=== PATIENT | male | born 1950 | race Caucasian/White ===

== ENCOUNTER 2017-04-08 05:49 | Day surgery (SDC) | payer OTHER ==
[2017-04-08] MEDS ORDERED: Versed 2 MG/2 ML Injection IV ONE (05:50)
[2017-04-08] MEDS ORDERED: DIPRIVAN 200 MG/20 ML IV ONE (05:50)
[2017-04-08] MEDS ORDERED: Lactated Ringers 1,000 ML IV ONE (05:58)
[2017-04-08] MEDS ORDERED: Lactated Ringers 1,000 ML IV SCH (06:30)
[2017-04-08 08:19] VITALS: O2SAT 99
[2017-04-08 08:32] VITALS: BP 102/58; PULSE 67
--- NOTE | 2017-04-08 08:45 | OP ---
SURGERY DATE/TIME: 04/08/2017 0703 PREOPERATIVE DIAGNOSES: 1) Persistent gastroesophageal reflux disease. 2) Screening colonoscopy. 3) Unexplained weight loss. POSTOPERATIVE DIAGNOSES: 1) Normal EGD. 2) Normal colon. PROCEDURES: 1) EGD. 2) Colonoscopy. SURGEON: Dewey Powers M.D. ANESTHESIA: MAC by Shaun Jaramillo CRNA. ESTIMATED BLOOD LOSS: None. SPECIMENS: None. DESCRIPTION OF PROCEDURE: After informed written consent was obtained, the patient was taken to the endoscopy suite. He underwent monitored anesthesia after a bite block was inserted. The endoscope was inserted in the posterior oropharynx and under direct visualization the esophagus was traversed. The esophageal mucosa was normal in appearance free of lesions or defects. The gastric mucosa had no obvious abnormalities upon entering the gastric cavity. The pylorus was traversed and the first and second portions of the duodenum was within normal limits. Upon withdrawal all mucosal structures appeared normal. The scope was removed and the scopes were switched. Digital rectal exam showed normal sphincter tone and no internal lesions. The scope was inserted in the rectum and sequentially the entire colonic mucosa was traversed. The level of cecum was reached and verified with direct visualization of ileocecal valve. Upon withdrawal careful mucosal inspection revealed no gross abnormalities. Prep was noted to be fair. There was some liquid stool throughout the colon. Prior to withdrawal retroflexion was performed and showed no internal lesions. The scope was removed and the patient was transferred to the recovery room in excellent condition.
== END 2017-04-08 08:54 | disposition home or self-care (01) ==
LOC: SDC 05:49
PROVIDERS: ATTEND Family Medicine
PROC: 0DJD8ZZ Inspection of Lower Intestinal Tract, Via Natural or Artificial Opening Endoscopic (ICD-10-PCS; principal; 2017-04-08)
PROC: 0DJ08ZZ Inspection of Upper Intestinal Tract, Via Natural or Artificial Opening Endoscopic (ICD-10-PCS; 2017-04-08)
DX: K21.9 Gastro-esophageal reflux disease without esophagitis (principal); Z12.11 Encounter for screening for malignant neoplasm of colon; R63.4 Abnormal weight loss
CPT/HCPCS: 00740; 00810; J2250; J2704

== ENCOUNTER 2022-01-08 17:10 | Observation (INO) | payer MEDICARE ==
--- NOTE | 2022-01-08 17:46 | ERPHSYRPT ---
- History of Present Illness Source: patient, other () Exam Limitations: no limitations Patient Subjective Stated Complaint: pt here for generally not feeling since wednesday, aches all over, falling asleep often at home, sob at times Triage Nursing Assessment: pt alert, walked in, able to undress, resp easy, face mask in place, o2 sat 88% ra, o2 at 2 lnc applied Physician History: 71 yo wm w lethargy x 1 week. Pt/ deny focal weakness. Pt has a worsening cough/mild coryza. N/V/D/melena/hematochezia/fever/dysuria/hematuria/chest pain all denied.Pt w sats high 80's upon arrival which increased w 2L O2 NC. Timing/Duration: other (1week) Associated Symptoms: shortness of breath, cough, chills, loss of appetite, malaise, weakness, No nausea, No vomiting, No abdominal pain, No heartburn, No diaphoresis, No chest pain, No fever, No headaches, No rash, No syncope, No seizure Allergies/Adverse Reactions: No Known Drug Allergies Allergy (Verified 01/08/22 20:26) Home Medications: Aspirin 81 gm Chew [Baby Aspirin 81 mg Chew] 81 mg PO QHS 05/16/14 [History] Meloxicam 7.5 tab PO QHS 04/05/17 [History] Multivitamin [Multivitamins] 1 tab PO QHS 04/05/17 [History] Oxybutynin Chloride [Oxybutynin Chloride ER] 10 mg PO QHS 04/05/17 [History] Chlorthalidone 12.5 mg PO QHS 01/08/22 [History] Latanoprost/Pf [Latanoprost 0.005% Eye Drop] 1 drop OP DAILY 01/08/22 [History] Pravastatin Sodium 20 mg PO QHS 01/08/22 [History] Timolol Maleate/Pf [Timolol Maleate 0.5% Eye Drop] 1 drop OP QHS 01/08/22 [History] Hx Tetanus, Diphtheria Vaccination/Date Given: No Hx Influenza Vaccination/Date Given: No Hx Pneumococcal Vaccination/Date Given: No Immunizations Up to Date: Yes Travel Risk - International Travel Have you traveled outside of the country in past 3 weeks: No - Coronavirus Screening Are you exhibiting any of the following symptoms?: Yes Symptoms: Shortness of Breath, Headaches/Body Aches/Fatigue Close contact with a COVID-19 positive Pt in past 14-21 Days: No - Vaccine Status Have you recieved a Covid-19 vaccination: No - Review of Systems Constitutional: No Symptoms, Fatigue, Lethargy, Malaise Eyes: No Symptoms Ears, Nose, & Throat: No Symptoms Respiratory: No Symptoms, Cough Cardiac: No Symptoms Abdominal/Gastrointestinal: No Symptoms Genitourinary Symptoms: No Symptoms Musculoskeletal: No Symptoms Skin: No Symptoms Neurological: No Symptoms, Lethargy, No Dizziness, No Focal Weakness, No Gait Changes, No Headache, No Irritability, No Paralysis, No Parasthesia, No Seizure, No Sensory Changes, No Speech Changes, No Tics, No Tremors, No Vertigo Psychological: No Symptoms Endocrine: No Symptoms Hematologic/Lymphatic: No Symptoms Immunological/Allergic: No Symptoms - Past Medical History Pertinent Past Medical History: Yes Neurological History: TIA ENT History: No Pertinent History Cardiac History: No Pertinent History Respiratory History: No Pertinent History Endocrine Medical History: No Pertinent History Musculoskeletal History: No Pertinent History GI Medical History: No Pertinent History History: Other Psycho-Social History: No Pertinent History Male Reproductive Disorders: No Pertinent History Other Medical History: 3 back surgeries, 2 TIA - Past Surgical History Past Surgical History: Yes Neuro Surgical History: No Pertinent History Cardiac: No Pertinent History Respiratory: No Pertinent History Gastrointestinal: Appendectomy, Hernia Repair Genitourinary: No Pertinent History Musculoskeletal: Orthopedic Surgery Male Surgical History: No Pertinent History Other Surgical History: Back surgery x3 - Social History Smoking Status: Current every day smoker How long have you smoked: 50 Exposure to second hand smoke: Yes Drug Use: none Patient Lives Alone: No Significant Family History: no pertinent family hx - Nursing Vital Signs Nursing Vital Signs: Initial Vital Signs Temperature 99.2 F 01/08/22 17:19 Pulse Rate 84 01/08/22 17:19 Respiratory Rate 28 H 01/08/22 17:19 Blood Pressure 139/70 01/08/22 17:19 O2 Sat by Pulse Oximetry 87 L 01/08/22 17:19 Pain Scale Pain Intensity 0 Borderline hypertension - Physical Exam General Appearance: no apparent distress, lethargy Eye Exam: PERRL/EOMI, eyes nml inspection Ears, Nose, Throat Exam: normal ENT inspection, TMs normal, pharynx normal, moist mucous membranes Neck Exam: normal inspection, non-tender, supple, full range of motion, No meningismus, No mass, No Brudzinski, No Kernig's Respiratory Exam: airway intact, diminished breath sounds (Decreased BS B) Cardiovascular Exam: regular rate/rhythm, normal heart sounds, normal peripheral pulses, capillary refill <2 sec, No murmur Gastrointestinal/Abdomen Exam: soft, normal bowel sounds, No tenderness Back Exam: normal inspection, normal range of motion, No CVA tenderness, No vertebral tenderness Extremity Exam: normal inspection, normal range of motion Neurologic Exam: alert, oriented x 3, cooperative, superintendent job II-XII nml as tested, normal mood/affect, nml cerebellar function, nml station & gait, sensation nml Skin Exam: normal color, warm, dry Lymphatic Exam: No adenopathy SpO2 Interpretation: hypoxic SpO2: 87 O2 Delivery: Room Air - Course Nursing assessment & vital signs reviewed: Yes EKG Interpreted by Me: RATE (NSR/Rate 82/RBBB/Nonspecific St-[facility] changes) - CT Exams Head CT Interpretation: Discussed w/radiologist (NAD) Chest CT Interpretation: Discussed w/radiologist (RLL/Mild LLL pneumonia) Ordered Tests: Active Orders 24 hr Category Date Time Status EKG-ER Only STAT Care 01/08/22 17:38 Completed IV Insertion STAT Care 01/08/22 17:38 Completed Heart-Healthy Diet Diet 01/09/22 Breakfast Active CHEST WITHOUT CONTRAST [CT] Stat Exams 01/08/22 17:39 Taken HEAD WITHOUT CONTRAST [CT] Stat Exams 01/08/22 17:39 Taken BLOOD CULTURE Stat Lab 01/08/22 19:44 Stop Req CBC W DIFF AM.LAB Lab 01/09/22 04:00 Ordered CBC W DIFF Stat Lab 01/08/22 17:55 Completed CMP AM.LAB Lab 01/09/22 04:00 Ordered CMP Stat Lab 01/08/22 17:55 Completed ETHYL ALCOHOL Stat Lab 01/08/22 17:55 Completed Lactic Acid AM.LAB Lab 01/09/22 04:00 Ordered Lactic Acid Stat Lab 01/08/22 17:55 Completed TROPONIN Q3H Lab 01/08/22 17:55 Completed TROPONIN Q3H Lab 01/08/22 19:44 Completed TROPONIN Q3H Lab 01/09/22 02:45 Ordered TROPONIN Q3H Lab 01/09/22 05:45 Ordered UA W/RFX CULTURE Stat Lab 01/08/22 20:55 Completed Urine Triage Profile Stat Lab 01/08/22 20:55 Completed Transfer Order Routine Transfer 01/08/22 Completed Medication Summary Generic Name Dose Route Start Last Admin Trade Name Freq PRN Reason Stop Dose Admin Albuterol/Ipratropium 3 ml 01/08/22 19:33 Ipratropium/Albuterol Sulfate 3 Ml Ampul.Neb IH 02/07/22 19:32 Q4HPRN PRN SHORTNESS OF BREATH/WHEEZING Aspirin 81 mg 01/08/22 22:30 01/08/22 22:36 Aspirin 81 Mg Tablet.Ec PO 02/07/22 22:29 81 mg HS MATIAS Administration Chlorthalidone 12.5 mg 01/08/22 22:30 01/08/22 23:15 Chlorthalidone 25 Mg Tablet PO 02/07/22 22:29 12.5 mg HS MATIAS Administration Enoxaparin Sodium 40 mg 01/09/22 10:00 Enoxaparin Sodium 40 Mg/0.4 Ml Syringe SQ 02/08/22 09:59 DAILY MATIAS Sodium Chloride 1,000 mls @ 100 mls/hr 01/08/22 19:45 01/08/22 19:45 Sodium Chloride 0.9% 1000 Ml IV 02/07/22 19:44 100 mls/hr .Q10H MATIAS Administration Ceftriaxone Sodium/Dextrose 1 g in 50 mls @ 100 mls/hr 01/09/22 22:00 Rocephin 1 Gm-D5w 50 Ml Bag IV 01/12/22 21:59 Q24H22 MATIAS Azithromycin 500 mg in 250 mls @ 250 mls/hr 01/08/22 22:00 01/08/22 22:35 Zithromax 500 Mg/ 250 Ml Nacl Premix IV 02/07/22 21:59 250 mls/hr Q24H22 MATIAS Administration Meloxicam 7.5 mg 01/08/22 22:30 01/08/22 22:36 Meloxicam 7.5 Mg Tablet PO 02/07/22 22:29 7.5 mg HS MATIAS Administration Multivitamins Therapeutic 1 tab 01/08/22 22:30 01/08/22 22:36 Multivitamins,Therapeutic 1 Tab Tab PO 02/07/22 22:29 1 tab HS MATIAS Administration Ondansetron HCl 4 mg 01/08/22 19:33 Ondansetron Hcl 4 Mg/2 Ml Vial IV 02/07/22 19:32 Q6H PRN PRN NAUSEA/VOMITING Oxybutynin Chloride 10 mg 01/08/22 22:30 01/08/22 22:36 Oxybutynin Chloride Xl 5 Mg Tab PO 02/07/22 22:29 10 mg HS MATIAS Administration Pantoprazole Sodium 40 mg 01/09/22 10:00 Pantoprazole 40 Mg Vial IV 02/08/22 09:59 Q24H10 MATIAS Simvastatin 20 mg 01/08/22 22:30 01/08/22 22:36 Simvastatin 20 Mg Tablet PO 02/07/22 22:29 20 mg HS MATIAS Administration Timolol Maleate 0 ml 01/08/22 22:30 01/08/22 22:36 Timolol Maleate 0.5% 5 Ml Eye Drops OP 02/07/22 22:29 1 ml HS MATIAS Administration Discontinued Medications Generic Name Dose Route Start Last Admin Trade Name Freq PRN Reason Stop Dose Admin Aspirin 81 mg 01/08/22 22:30 Aspirin 81 Mg Tablet.Ec PO 01/08/22 22:31 ONCE ONE Ceftriaxone Sodium/Dextrose 1 g in 50 mls @ 100 mls/hr 01/08/22 19:22 01/08/22 19:56 Rocephin 1 Gm-D5w 50 Ml Bag IV 01/08/22 19:51 Infused STAT STA Infusion Ceftriaxone Sodium/Dextrose Confirm 01/08/22 19:24 Rocephin 1 Gm-D5w 50 Ml Bag Administered 01/08/22 19:25 Dose 1 g in 50 mls @ ud IV .STK-MED ONE Oxybutynin Chloride 10 mg 01/08/22 22:30 Oxybutynin Chloride Xl 5 Mg Tab PO 01/08/22 22:31 ONCE ONE Lab/Rad Data: Laboratory Result Diagrams 01/08/22 17:55 01/08/22 17:55 Laboratory Results 01/08/22 01/08/22 01/08/22 Range/Units 19:44 17:55 17:55 WBC (4.0-10.5) x10^3/uL RBC (4.1-5.6) x10^6/uL Hgb (12.5-18.0) g/dL Hct (42-50) % MCV (78-100) fL MCH (26-32) pg MCHC (32-36) g/dL RDW (11.5-14.0) % Plt Count (150-450) x10^3/uL MPV (7.5-11.0) fL Gran % (36.0-66.0) % Immature Gran % (Auto) (0.00-0.4) % Nucleat RBC Rel Count (0.00-0.1) % Eos # (Auto) (0-0.5) x10^3/uL Immature Gran # (Auto) (0.00-0.03) x10^3u/L Absolute Lymphs (auto) (1.0-4.6) x10^3/uL Absolute Monos (auto) (0.0-1.3) x10^3/uL Absolute Nucleated RBC (0.00-0.01) x10^3u/L Lymphocytes % (24.0-44.0) % Monocytes % (0.0-12.0) % Eosinophils % (0.00-5.0) % Basophils % (0.0-0.4) % Absolute Granulocytes (1.4-6.9) x10^3/uL Basophils # (0-0.4) x10^3/uL Sodium (137-145) mmol/L Potassium (3.5-5.1) mmol/L Chloride (98-107) mmol/L Carbon Dioxide (22-30) mmol/L Anion Gap (5-15) MEQ/L BUN (9-20) mg/dL Creatinine (0.66-1.25) mg/dL Estimated GFR ML/MIN Glucose (74-106) mg/dL Lactic Acid (0.4-2.0) Calcium (8.4-10.2) mg/dL Total Bilirubin (0.2-1.3) mg/dL AST (17-59) U/L ALT (0-50) U/L Alkaline Phosphatase (38-126) U/L Troponin I < 0.012 < 0.012 (0.000-0.034) ng/mL Serum Total Protein (6.3-8.2) g/dL Albumin (3.5-5.0) g/dL Ethyl Alcohol (0-10) mg/dL Influenza Type A Ag NEGATIVE (NEGATIVE) Influenza Type B Ag NEGATIVE (NEGATIVE) RSV (PCR) NEGATIVE (Negative) SARS-CoV-2 (PCR) NEGATIVE (NEGATIVE) Slides for Path Review 01/08/22 01/08/22 01/08/22 Range/Units 17:55 17:55 17:55 WBC 12.8 H (4.0-10.5) x10^3/uL RBC 4.41 (4.1-5.6) x10^6/uL Hgb 13.3 (12.5-18.0) g/dL Hct 39.0 L (42-50) % MCV 88.4 (78-100) fL MCH 30.2 (26-32) pg MCHC 34.1 (32-36) g/dL RDW 13.2 (11.5-14.0) % Plt Count 200 (150-450) x10^3/uL MPV 8.5 (7.5-11.0) fL Gran % 78.9 H (36.0-66.0) % Immature Gran % (Auto) 0.5 H (0.00-0.4) % Nucleat RBC Rel Count 0.0 (0.00-0.1) % Eos # (Auto) 0.08 (0-0.5) x10^3/uL Immature Gran # (Auto) 0.07 H (0.00-0.03) x10^3u/L Absolute Lymphs (auto) 1.00 (1.0-4.6) x10^3/uL Absolute Monos (auto) 1.52 H (0.0-1.3) x10^3/uL Absolute Nucleated RBC 0.00 (0.00-0.01) x10^3u/L Lymphocytes % 7.8 L (24.0-44.0) % Monocytes % 11.9 (0.0-12.0) % Eosinophils % 0.6 (0.00-5.0) % Basophils % 0.3 (0.0-0.4) % Absolute Granulocytes 10.08 H (1.4-6.9) x10^3/uL Basophils # 0.04 (0-0.4) x10^3/uL Sodium 133 L (137-145) mmol/L Potassium 3.9 (3.5-5.1) mmol/L Chloride 95 L (98-107) mmol/L Carbon Dioxide 28 (22-30) mmol/L Anion Gap 13.3 (5-15) MEQ/L BUN 21 H (9-20) mg/dL Creatinine 0.96 (0.66-1.25) mg/dL Estimated GFR > 60.0 ML/MIN Glucose 108 H (74-106) mg/dL Lactic Acid 0.9 (0.4-2.0) Calcium 9.2 (8.4-10.2) mg/dL Total Bilirubin 0.70 (0.2-1.3) mg/dL AST 22 (17-59) U/L ALT 12 (0-50) U/L Alkaline Phosphatase 66 (38-126) U/L Troponin I (0.000-0.034) ng/mL Serum Total Protein 6.6 (6.3-8.2) g/dL Albumin 4.0 (3.5-5.0) g/dL Ethyl Alcohol < 10 (0-10) mg/dL Influenza Type A Ag (NEGATIVE) Influenza Type B Ag (NEGATIVE) RSV (PCR) (Negative) SARS-CoV-2 (PCR) (NEGATIVE) Slides for Path Review YES - Progress Progress: improved Progress Note: 01/08/22 19:32 Blood cultures x2 Rocephin 1gm IV Discussed with Dr.: Soren Will see patient in: hospital (observation) Counseled pt/family regarding: lab results, diagnosis, need for follow-up, rad results - Departure Departure Disposition: Observation Clinical Impression: Pneumonia Condition: Stable Critical Care Time: No
[2022-01-08 18:06] LABS: Absolute Neutrophil Ct (ANC) 10.08 x10^3/uL (1.4-6.9); Basophil (Absolute #) 0.04 x10^3/uL (0-0.4); Eosinophil % 0.6 % (0.00-5.0); Eosinophil (Absolute #) 0.08 x10^3/uL (0-0.5); Hemoglobin 13.3 g/dL (12.5-18.0); Lymphocytes % 7.8 % (24.0-44.0); Mean Cell Volume 88.4 fL (78-100); Mean Corpuscular Hemoglobin 30.2 pg (26-32); Mean Corpuscular Hgb Concent. 34.1 g/dL (32-36); Mean Platelet Volume 8.5 fL (7.5-11.0); Monocyte (Absolute #) 1.52 x10^3/uL (0.0-1.3); Monocytes % 11.9 % (0.0-12.0); Neutrophil % 78.9 % (36.0-66.0); Platelet Count 200 x10^3/uL (150-450); Red Blood Count 4.41 x10^6/uL (4.1-5.6); Red Cell Distribution Width 13.2 % (11.5-14.0); White Blood Count 12.8 x10^3/uL (4.0-10.5)
[2022-01-08 18:13] LABS: ALKALINE PHOSPHATASE 66 U/L (38-126); ANION GAP 13.3 MEQ/L (5-15); BLOOD UREA NITROGEN 21 mg/dL (9-20); CHLORIDE 95 mmol/L (98-107); Calcium 9.2 mg/dL (8.4-10.2); Carbon Dioxide 28 mmol/L (22-30); Creatinine 1 0.96 mg/dL (0.66-1.25); EST GLOMERULAR FILTRATION RATE > 60.0 ML/MIN; ETHYL ALCOHOL < 10 mg/dL (0-10); Glucose 108 mg/dL (74-106); Potassium 3.9 mmol/L (3.5-5.1); SGOT/AST 22 U/L (17-59); SGPT/ALT 12 U/L (0-50); SODIUM 133 mmol/L (137-145); Total Protein 6.6 g/dL (6.3-8.2)
[2022-01-08 18:39] LABS: INFLUENZA A NEGATIVE (NEGATIVE); INFLUENZA B NEGATIVE (NEGATIVE); RESPIRATORY SYNCTIAL VIRUS NEGATIVE (Negative); SARS-CoV-2 Xpert Express NEGATIVE (NEGATIVE)
[2022-01-08] MEDS ORDERED: ROCEPHIN 1 Gm-D5w 50 ml Bag** 1 G/50 ML IVPB IV STA (19:22)
[2022-01-08] MEDS ORDERED: ROCEPHIN 1 Gm-D5w 50 ml Bag** 1 G/50 ML IVPB IV ONE (19:24)
[2022-01-08] MEDS ORDERED: DUONEB 0.5-3 MG/3 ml Neb IH PRN (19:33)
[2022-01-08] MEDS ORDERED: Zofran 4 MG/2 ML VIAL IV PRN (19:33)
[2022-01-08] MEDS: Sodium Chloride 0.9% 1000 ML 1,000 ML IV SCH (19:45)
[2022-01-08 21:02] LABS: Appearance CLEAR (CLEAR); Bilirubin NEGATIVE (NEGATIVE); Dipstick done @ ? MAIN LAB; Glucose NEGATIVE (NEGATIVE); Ketones SMALL-15 (NEGATIVE); Nitrite NEGATIVE (NEGATIVE); Protein,Urine Dip NEGATIVE (Negative); RBC TRACE-INTACT Ery/ul (0-5); Urobilinogen 1 mg/dL (0-1)
[2022-01-08 21:04] LABS: Urine Cultured Indicated? NO
[2022-01-08 21:16] LABS: Slide Review 1 YES
[2022-01-08 21:18] LABS: Amphetamine,Urine NEGATIVE (NEGATIVE); Barbiturate,Urine NEGATIVE (NEGATIVE); Benzodiazepine,Urine NEGATIVE (NEGATIVE); Cocaine,Urine NEGATIVE (NEGATIVE); Methadone,Urine NEGATIVE (NEGATIVE); Opiate,Urine NEGATIVE (NEGATIVE); PCP,Urine NEGATIVE (NEGATIVE); THC,Urine NEGATIVE (NEGATIVE)
[2022-01-08] MEDS ORDERED: ECOTRIN 81 MG PO ONE (22:30)
[2022-01-08] MEDS ORDERED: BABY ASPIRIN 81 MG CHEW PO ONE (22:30)
[2022-01-08] MEDS ORDERED: Ditropan XL 5 MG PO ONE (22:30)
[2022-01-08] MEDS: Zithromax 500 MG/ 250 ML NaCl Premix 500 MG/250 ML IVPB IV SCH (22:35)
[2022-01-08] MEDS: TIMOPTIC 0.5% 5 ML OPHTHALMIC OP SCH (22:36)
[2022-01-08] MEDS: MELOXICAM PO SCH (22:36)
[2022-01-08] MEDS: THERAGRAN MULTIVITAMIN PO SCH (22:36)
[2022-01-08] MEDS: ECOTRIN 81 MG PO SCH (22:36)
[2022-01-08] MEDS: ZOCOR 20MG PO SCH (22:36)
[2022-01-08] MEDS: Ditropan XL 5 MG PO SCH (22:36)
[2022-01-08] MEDS: CHLORTHALIDONE PO SCH (23:15)
[2022-01-09 04:41] LABS: Absolute Neutrophil Ct (ANC) 8.02 x10^3/uL (1.4-6.9); Basophil (Absolute #) 0.03 x10^3/uL (0-0.4); Eosinophil % 1.1 % (0.00-5.0); Eosinophil (Absolute #) 0.12 x10^3/uL (0-0.5); Hemoglobin 12.2 g/dL (12.5-18.0); Lymphocyte (Absolute #) 1.62 x10^3/uL (1.0-4.6); Lymphocytes % 14.2 % (24.0-44.0); Mean Cell Volume 88.3 fL (78-100); Mean Corpuscular Hemoglobin 29.1 pg (26-32); Mean Platelet Volume 8.6 fL (7.5-11.0); Monocyte (Absolute #) 1.49 x10^3/uL (0.0-1.3); Monocytes % 13.1 % (0.0-12.0); Neutrophil % 70.5 % (36.0-66.0); Platelet Count 210 x10^3/uL (150-450); Red Blood Count 4.19 x10^6/uL (4.1-5.6); Red Cell Distribution Width 13.2 % (11.5-14.0); White Blood Count 11.4 x10^3/uL (4.0-10.5)
[2022-01-09 05:10] LABS: ALBUMIN 3.3 g/dL (3.5-5.0); ALKALINE PHOSPHATASE 57 U/L (38-126); ANION GAP 11.5 MEQ/L (5-15); BLOOD UREA NITROGEN 21 mg/dL (9-20); CHLORIDE 100 mmol/L (98-107); Calcium 8.7 mg/dL (8.4-10.2); Carbon Dioxide 28 mmol/L (22-30); EST GLOMERULAR FILTRATION RATE > 60.0 ML/MIN; Glucose 116 mg/dL (74-106); Potassium 3.5 mmol/L (3.5-5.1); SGOT/AST 21 U/L (17-59); SGPT/ALT 12 U/L (0-50); SODIUM 135 mmol/L (137-145); Total Protein 6.1 g/dL (6.3-8.2)
[2022-01-09] MEDS: Sodium Chloride 0.9% 1000 ML 1,000 ML IV SCH ×2 (07:54→18:17)
--- NOTE | 2022-01-09 08:30 | PCM.HP ---
History of Present Illness - Chief Complaint Chief Complaint: pneumonia History of Present Illness: Mr.FISH FERNANDEZ is a 71 year old male who reported to the ER last night with a cough and increasing somnolence for the last 1 week, he is alert and eating breakfast and states he is feeling better this morning, his cough was productive prior to admission. no other complaints. - Review of Systems Constitutional: Fatigue, No Fever, No Chills Respiratory: Cough, Short Of Breath Cardiac: No Chest Pain, No Edema, No Syncope Abdominal/Gastrointestinal: No Abdominal Pain, No Nausea, No Vomiting, No Diarrhea Genitourinary Symptoms: No Dysuria Skin: No Rash Medications & Allergies Home Medications: Home Medication List Aspirin 81 gm Chew [Baby Aspirin 81 mg Chew] 81 mg PO QHS 05/16/14 [History Confirmed 01/08/22] Meloxicam 7.5 tab PO QHS 04/05/17 [History Confirmed 01/08/22] Multivitamin [Multivitamins] 1 tab PO QHS 04/05/17 [History Confirmed 01/08/22] Oxybutynin Chloride [Oxybutynin Chloride ER] 10 mg PO QHS 04/05/17 [History Confirmed 01/08/22] Chlorthalidone 12.5 mg PO QHS 01/08/22 [History Confirmed 01/08/22] Latanoprost/Pf [Latanoprost 0.005% Eye Drop] 1 drop OP DAILY 01/08/22 [History Confirmed 01/08/22] Pravastatin Sodium 20 mg PO QHS 01/08/22 [History Confirmed 01/08/22] Timolol Maleate/Pf [Timolol Maleate 0.5% Eye Drop] 1 drop OP QHS 01/08/22 [History Confirmed 01/08/22] Allergies/Adverse Reactions: Allergies Allergy/AdvReac Type Severity Reaction Status Date / Time No Known Drug Allergies Allergy Verified 01/08/22 20:26 - Past Medical History Past Medical History: Yes Neurological History: TIA ENT History: No Pertinent History Cardiac History: No Pertinent History Respiratory History: No Pertinent History Endocrine Medical History: No Pertinent History Musculoskelatal History: No Pertinent History GI Medical History: No Pertinent History History: Other Pyscho-Social History: No Pertinent History Male Reproductive Disorders: No Pertinent History Comment: 3 back surgeries, 2 TIA - Past Surgical History Past Surgical History: Yes Neuro Surgical History: No Pertinent History Cardiac History: No Pertinent History Respiratory Surgery: No Pertinent History GI Surgical History: Appendectomy, Hernia Repair Genitourinary Surgical Hx: No Pertinent History Musculskeletal Surgical Hx: Orthopedic Surgery Male Surgical History: No Pertinent History Other Surgical History: Back surgery x3 - Social History Smoking Status: Current every day smoker How long have you smoked: 50 Exposure to second hand smoke: Yes Alcohol: None Drug Use: none Significant Family History: no pertinent family hx - Physical Exam Vital Signs: Vital Signs - 24 hr Temp Pulse Resp BP Pulse Ox 01/09/22 08:00 97.7 F 64 15 115/55 95 01/09/22 06:47 68 16 92 L 01/09/22 04:00 100 F 72 20 107/56 95 01/08/22 23:51 87 L 01/08/22 23:22 98.0 F 78 18 98/53 96 01/08/22 22:46 94 L 01/08/22 22:39 78 16 94 L 01/08/22 20:39 98.9 F 82 20 107/56 94 L 01/08/22 19:59 79 32 H 121/72 93 L 01/08/22 19:00 79 124/67 92 L 01/08/22 18:20 80 125/70 92 L 01/08/22 17:19 99.2 F 84 28 H 139/70 87 L General Appearance: no apparent distress Neurologic Exam: alert, oriented x 3, cooperative, normal mood/affect, nml cerebellar function, nml station & gait, sensation nml, No motor deficits Respiratory Exam: rhonchi Cardiovascular Exam: regular rate/rhythm, normal heart sounds, normal peripheral pulses Gastrointestinal/Abdomen Exam: soft, normal bowel sounds, No tenderness, No mass Extremity Exam: normal inspection, normal range of motion, pelvis stable Skin Exam: normal color, warm, dry, No rash Results - Labs Lab/Micro Results: Lab Results-Last 24 Hours 01/08/22 01/08/22 01/08/22 Range/Units 17:55 17:55 17:55 WBC 12.8 H (4.0-10.5) x10^3/uL RBC 4.41 (4.1-5.6) x10^6/uL Hgb 13.3 (12.5-18.0) g/dL Hct 39.0 L (42-50) % MCV 88.4 (78-100) fL MCH 30.2 (26-32) pg MCHC 34.1 (32-36) g/dL RDW 13.2 (11.5-14.0) % Plt Count 200 (150-450) x10^3/uL MPV 8.5 (7.5-11.0) fL Gran % 78.9 H (36.0-66.0) % Immature Gran % (Auto) 0.5 H (0.00-0.4) % Nucleat RBC Rel Count 0.0 (0.00-0.1) % Eos # (Auto) 0.08 (0-0.5) x10^3/uL Immature Gran # (Auto) 0.07 H (0.00-0.03) x10^3u/L Absolute Lymphs (auto) 1.00 (1.0-4.6) x10^3/uL Absolute Monos (auto) 1.52 H (0.0-1.3) x10^3/uL Absolute Nucleated RBC 0.00 (0.00-0.01) x10^3u/L Lymphocytes % 7.8 L (24.0-44.0) % Monocytes % 11.9 (0.0-12.0) % Eosinophils % 0.6 (0.00-5.0) % Basophils % 0.3 (0.0-0.4) % Absolute Granulocytes 10.08 H (1.4-6.9) x10^3/uL Basophils # 0.04 (0-0.4) x10^3/uL Sodium 133 L (137-145) mmol/L Potassium 3.9 (3.5-5.1) mmol/L Chloride 95 L (98-107) mmol/L Carbon Dioxide 28 (22-30) mmol/L Anion Gap 13.3 (5-15) MEQ/L BUN 21 H (9-20) mg/dL Creatinine 0.96 (0.66-1.25) mg/dL Estimated GFR > 60.0 ML/MIN Glucose 108 H (74-106) mg/dL Lactic Acid 0.9 (0.4-2.0) Calcium 9.2 (8.4-10.2) mg/dL Total Bilirubin 0.70 (0.2-1.3) mg/dL AST 22 (17-59) U/L ALT 12 (0-50) U/L Alkaline Phosphatase 66 (38-126) U/L Troponin I (0.000-0.034) ng/mL Serum Total Protein 6.6 (6.3-8.2) g/dL Albumin 4.0 (3.5-5.0) g/dL Urinalys Dipstick Clnc Urine Color (YELLOW) Urine Appearance (CLEAR) Urine pH (5-6) Ur Specific [place] (1.005-1.025) POC Urine Protein Conf (Negative) Urine Ketones (NEGATIVE) Urine Nitrite (NEGATIVE) Urine Bilirubin (NEGATIVE) Urine Urobilinogen (0-1) mg/dL Urine Leukocytes (NEGATIVE) Urine WBC (Auto) (0-5) /HPF Urine RBC (Auto) (0-2) /HPF U Epithel Cells (Auto) (FEW) /HPF Urine Bacteria (Auto) (NEGATIVE) /HPF Urine RBC (0-5) Jostin/ul Ur Culture Indicated? Urine Glucose (NEGATIVE) mg/dL Urine Opiates Level (NEGATIVE) Ur Methadone (NEGATIVE) Urine Barbiturates (NEGATIVE) Ur Phencyclidine (PCP) (NEGATIVE) Urine Amphetamine (NEGATIVE) U Benzodiazepine Level (NEGATIVE) Urine Cocaine (NEGATIVE) Urine Marijuana (THC) (NEGATIVE) Ethyl Alcohol < 10 (0-10) mg/dL Influenza Type A Ag (NEGATIVE) Influenza Type B Ag (NEGATIVE) RSV (PCR) (Negative) SARS-CoV-2 (PCR) (NEGATIVE) Slides for Path Review YES 01/08/22 01/08/22 01/08/22 Range/Units 17:55 17:55 19:44 WBC (4.0-10.5) x10^3/uL RBC (4.1-5.6) x10^6/uL Hgb (12.5-18.0) g/dL Hct (42-50) % MCV (78-100) fL MCH (26-32) pg MCHC (32-36) g/dL RDW (11.5-14.0) % Plt Count (150-450) x10^3/uL MPV (7.5-11.0) fL Gran % (36.0-66.0) % Immature Gran % (Auto) (0.00-0.4) % Nucleat RBC Rel Count (0.00-0.1) % Eos # (Auto) (0-0.5) x10^3/uL Immature Gran # (Auto) (0.00-0.03) x10^3u/L Absolute Lymphs (auto) (1.0-4.6) x10^3/uL Absolute Monos (auto) (0.0-1.3) x10^3/uL Absolute Nucleated RBC (0.00-0.01) x10^3u/L Lymphocytes % (24.0-44.0) % Monocytes % (0.0-12.0) % Eosinophils % (0.00-5.0) % Basophils % (0.0-0.4) % Absolute Granulocytes (1.4-6.9) x10^3/uL Basophils # (0-0.4) x10^3/uL Sodium (137-145) mmol/L Potassium (3.5-5.1) mmol/L Chloride (98-107) mmol/L Carbon Dioxide (22-30) mmol/L Anion Gap (5-15) MEQ/L BUN (9-20) mg/dL Creatinine (0.66-1.25) mg/dL Estimated GFR ML/MIN Glucose (74-106) mg/dL Lactic Acid (0.4-2.0) Calcium (8.4-10.2) mg/dL Total Bilirubin (0.2-1.3) mg/dL AST (17-59) U/L ALT (0-50) U/L Alkaline Phosphatase (38-126) U/L Troponin I < 0.012 < 0.012 (0.000-0.034) ng/mL Serum Total Protein (6.3-8.2) g/dL Albumin (3.5-5.0) g/dL Urinalys Dipstick Clnc Urine Color (YELLOW) Urine Appearance (CLEAR) Urine pH (5-6) Ur Specific [place] (1.005-1.025) POC Urine Protein Conf (Negative) Urine Ketones (NEGATIVE) Urine Nitrite (NEGATIVE) Urine Bilirubin (NEGATIVE) Urine Urobilinogen (0-1) mg/dL Urine Leukocytes (NEGATIVE) Urine WBC (Auto) (0-5) /HPF Urine RBC (Auto) (0-2) /HPF U Epithel Cells (Auto) (FEW) /HPF Urine Bacteria (Auto) (NEGATIVE) /HPF Urine RBC (0-5) Jostin/ul Ur Culture Indicated? Urine Glucose (NEGATIVE) mg/dL Urine Opiates Level (NEGATIVE) Ur Methadone (NEGATIVE) Urine Barbiturates (NEGATIVE) Ur Phencyclidine (PCP) (NEGATIVE) Urine Amphetamine (NEGATIVE) U Benzodiazepine Level (NEGATIVE) Urine Cocaine (NEGATIVE) Urine Marijuana (THC) (NEGATIVE) Ethyl Alcohol (0-10) mg/dL Influenza Type A Ag NEGATIVE (NEGATIVE) Influenza Type B Ag NEGATIVE (NEGATIVE) RSV (PCR) NEGATIVE (Negative) SARS-CoV-2 (PCR) NEGATIVE (NEGATIVE) Slides for Path Review 01/08/22 01/08/22 01/09/22 Range/Units 20:55 20:55 04:20 WBC 11.4 H (4.0-10.5) x10^3/uL RBC 4.19 (4.1-5.6) x10^6/uL Hgb 12.2 L (12.5-18.0) g/dL Hct 37.0 L (42-50) % MCV 88.3 (78-100) fL MCH 29.1 (26-32) pg MCHC 33.0 (32-36) g/dL RDW 13.2 (11.5-14.0) % Plt Count 210 (150-450) x10^3/uL MPV 8.6 (7.5-11.0) fL Gran % 70.5 H (36.0-66.0) % Immature Gran % (Auto) 0.8 H (0.00-0.4) % Nucleat RBC Rel Count 0.0 (0.00-0.1) % Eos # (Auto) 0.12 (0-0.5) x10^3/uL Immature Gran # (Auto) 0.09 H (0.00-0.03) x10^3u/L Absolute Lymphs (auto) 1.62 (1.0-4.6) x10^3/uL Absolute Monos (auto) 1.49 H (0.0-1.3) x10^3/uL Absolute Nucleated RBC 0.00 (0.00-0.01) x10^3u/L Lymphocytes % 14.2 L (24.0-44.0) % Monocytes % 13.1 H (0.0-12.0) % Eosinophils % 1.1 (0.00-5.0) % Basophils % 0.3 (0.0-0.4) % Absolute Granulocytes 8.02 H (1.4-6.9) x10^3/uL Basophils # 0.03 (0-0.4) x10^3/uL Sodium (137-145) mmol/L Potassium (3.5-5.1) mmol/L Chloride (98-107) mmol/L Carbon Dioxide (22-30) mmol/L Anion Gap (5-15) MEQ/L BUN (9-20) mg/dL Creatinine (0.66-1.25) mg/dL Estimated GFR ML/MIN Glucose (74-106) mg/dL Lactic Acid (0.4-2.0) Calcium (8.4-10.2) mg/dL Total Bilirubin (0.2-1.3) mg/dL AST (17-59) U/L ALT (0-50) U/L Alkaline Phosphatase (38-126) U/L Troponin I (0.000-0.034) ng/mL Serum Total Protein (6.3-8.2) g/dL Albumin (3.5-5.0) g/dL Urinalys Dipstick Clnc MAIN LAB Urine Color YELLOW (YELLOW) Urine Appearance CLEAR (CLEAR) Urine pH 6.0 (5-6) Ur Specific [place] 1.020 (1.005-1.025) POC Urine Protein Conf NEGATIVE (Negative) Urine Ketones SMALL-15 (NEGATIVE) Urine Nitrite NEGATIVE (NEGATIVE) Urine Bilirubin NEGATIVE (NEGATIVE) Urine Urobilinogen 1 (0-1) mg/dL Urine Leukocytes NEGATIVE (NEGATIVE) Urine WBC (Auto) NONE (0-5) /HPF Urine RBC (Auto) 3-5 (0-2) /HPF U Epithel Cells (Auto) NONE (FEW) /HPF Urine Bacteria (Auto) NONE (NEGATIVE) /HPF Urine RBC TRACE-INTACT (0-5) Jostin/ul Ur Culture Indicated? NO Urine Glucose NEGATIVE (NEGATIVE) mg/dL Urine Opiates Level NEGATIVE (NEGATIVE) Ur Methadone NEGATIVE (NEGATIVE) Urine Barbiturates NEGATIVE (NEGATIVE) Ur Phencyclidine (PCP) NEGATIVE (NEGATIVE) Urine Amphetamine NEGATIVE (NEGATIVE) U Benzodiazepine Level NEGATIVE (NEGATIVE) Urine Cocaine NEGATIVE (NEGATIVE) Urine Marijuana (THC) NEGATIVE (NEGATIVE) Ethyl Alcohol (0-10) mg/dL Influenza Type A Ag (NEGATIVE) Influenza Type B Ag (NEGATIVE) RSV (PCR) (Negative) SARS-CoV-2 (PCR) (NEGATIVE) Slides for Path Review 01/09/22 01/09/22 Range/Units 04:20 04:30 WBC (4.0-10.5) x10^3/uL RBC (4.1-5.6) x10^6/uL Hgb (12.5-18.0) g/dL Hct (42-50) % MCV (78-100) fL MCH (26-32) pg MCHC (32-36) g/dL RDW (11.5-14.0) % Plt Count (150-450) x10^3/uL MPV (7.5-11.0) fL Gran % (36.0-66.0) % Immature Gran % (Auto) (0.00-0.4) % Nucleat RBC Rel Count (0.00-0.1) % Eos # (Auto) (0-0.5) x10^3/uL Immature Gran # (Auto) (0.00-0.03) x10^3u/L Absolute Lymphs (auto) (1.0-4.6) x10^3/uL Absolute Monos (auto) (0.0-1.3) x10^3/uL Absolute Nucleated RBC (0.00-0.01) x10^3u/L Lymphocytes % (24.0-44.0) % Monocytes % (0.0-12.0) % Eosinophils % (0.00-5.0) % Basophils % (0.0-0.4) % Absolute Granulocytes (1.4-6.9) x10^3/uL Basophils # (0-0.4) x10^3/uL Sodium 135 L (137-145) mmol/L Potassium 3.5 (3.5-5.1) mmol/L Chloride 100 (98-107) mmol/L Carbon Dioxide 28 (22-30) mmol/L Anion Gap 11.5 (5-15) MEQ/L BUN 21 H (9-20) mg/dL Creatinine 1.00 (0.66-1.25) mg/dL Estimated GFR > 60.0 ML/MIN Glucose 116 H (74-106) mg/dL Lactic Acid 0.7 (0.4-2.0) Calcium 8.7 (8.4-10.2) mg/dL Total Bilirubin 0.50 (0.2-1.3) mg/dL AST 21 (17-59) U/L ALT 12 (0-50) U/L Alkaline Phosphatase 57 (38-126) U/L Troponin I (0.000-0.034) ng/mL Serum Total Protein 6.1 L (6.3-8.2) g/dL Albumin 3.3 L (3.5-5.0) g/dL Urinalys Dipstick Clnc Urine Color (YELLOW) Urine Appearance (CLEAR) Urine pH (5-6) Ur Specific [place] (1.005-1.025) POC Urine Protein Conf (Negative) Urine Ketones (NEGATIVE) Urine Nitrite (NEGATIVE) Urine Bilirubin (NEGATIVE) Urine Urobilinogen (0-1) mg/dL Urine Leukocytes (NEGATIVE) Urine WBC (Auto) (0-5) /HPF Urine RBC (Auto) (0-2) /HPF U Epithel Cells (Auto) (FEW) /HPF Urine Bacteria (Auto) (NEGATIVE) /HPF Urine RBC (0-5) Jostin/ul Ur Culture Indicated? Urine Glucose (NEGATIVE) mg/dL Urine Opiates Level (NEGATIVE) Ur Methadone (NEGATIVE) Urine Barbiturates (NEGATIVE) Ur Phencyclidine (PCP) (NEGATIVE) Urine Amphetamine (NEGATIVE) U Benzodiazepine Level (NEGATIVE) Urine Cocaine (NEGATIVE) Urine Marijuana (THC) (NEGATIVE) Ethyl Alcohol (0-10) mg/dL Influenza Type A Ag (NEGATIVE) Influenza Type B Ag (NEGATIVE) RSV (PCR) (Negative) SARS-CoV-2 (PCR) (NEGATIVE) Slides for Path Review - Radiology Impressions Radiology Exams & Impressions: Radiology Procedures Category Date Time Status CHEST WITHOUT CONTRAST [CT] Stat Exams 01/08/22 17:39 Taken HEAD WITHOUT CONTRAST [CT] Stat Exams 01/08/22 17:39 Taken - Other Procedures and Tests Respiratory Therapy 01/08/22 19:33 Oxygen Nasal Cannula 3 lpm 01/08/22 22:39 Respiratory Therapy Assessment DAILY Assessment/Plan (1) Pneumonia Current Visit: Yes Status: Acute Assessment & Plan: continue rocephin/zithromax, will need to attempt to wean from oxygen prior to discharge. likely has some element of underlying copd but no wheezing on exam Code(s): J18.9 - PNEUMONIA, UNSPECIFIED ORGANISM
--- NOTE | 2022-01-09 08:57 | XRAY ---
Indication: Acute mental status change. Weakness. Multiple contiguous images obtained through the head without contrast. Comparison: None Again age-appropriate global atrophy and benign physiologic basal ganglia calcifications. No acute intracranial hemorrhage, abnormal extra-axial fluid collection, or mass effect. Fourth ventricle is midline without hydrocephalus. [place]-white matter differentiation is preserved. Bony calvarium intact. 1.9 cm right maxillary sinus polyp/retention cyst. Remaining visualized paranasal sinuses and mastoid air cells are clear. Impression: Right maxillary sinus polyp/retention cyst. Remaining CT head without contrast exam is again negative.
--- NOTE | 2022-01-09 08:59 | XRAY ---
Indication: Cough. Short of breath. Multiple contiguous axial images obtained through the chest without contrast. Comparison: None Right lower lobe demonstrates moderate diffuse interstitial alveolar opacities. Similar minimal opacity seen in the posterior left lower lobe. No effusion. Remaining lungs demonstrates moderate diffuse pulmonary emphysema with bilateral scattered fibrosis/scarring. Heart is not enlarged. Aorta mildly arteriosclerotic without aneurysm. No pathologic mediastinal lymphadenopathy. Small hiatal hernia. Bony thorax intact with minimal degenerative changes throughout the spine. Limited upper abdomen demonstrates moderate colonic fecal debris, 1.2 cm right lobe hepatic cyst, and 2.5 cm left mid renal exophytic cyst Impression: 1. Right lower lobe and lesser degree left lower lobe pneumonia without effusion. 2. Incidental small hiatal hernia and fecal stasis 3. Chronic findings including emphysema, pulmonary fibrosis/scarring, hepatic cyst, and left renal cyst.
[2022-01-09] MEDS: ENOXAPARIN SODIUM SQ SCH (09:09)
[2022-01-09] MEDS: PROTONIX 40 MG IV IV SCH (09:09)
[2022-01-09] MEDS: Xalatan OP SCH (09:12)
[2022-01-09] MEDS ORDERED: NON-FORMULARY ITEM (Latanoprost/Pf [Latanoprost 0.005% Eye Drop] 7.5 ML Drops) OP SCH (10:00)
[2022-01-09] MEDS: TIMOPTIC 0.5% 5 ML OPHTHALMIC OP SCH (21:22)
[2022-01-09] MEDS: Ditropan XL 5 MG PO SCH (21:22)
[2022-01-09] MEDS: ZOCOR 20MG PO SCH (21:23)
[2022-01-09] MEDS: MELOXICAM PO SCH (21:23)
[2022-01-09] MEDS: THERAGRAN MULTIVITAMIN PO SCH (21:23)
[2022-01-09] MEDS: ECOTRIN 81 MG PO SCH (21:23)
[2022-01-09] MEDS: CHLORTHALIDONE PO SCH (21:29)
[2022-01-09] MEDS: Zithromax 500 MG/ 250 ML NaCl Premix 500 MG/250 ML IVPB IV SCH (21:31)
[2022-01-09] MEDS ORDERED: NON-FORMULARY ITEM (Oxybutynin Chloride [Oxybutynin Chloride Er] 10 MG Tab.Er.24) PO SCH (22:00)
[2022-01-09] MEDS ORDERED: ROCEPHIN 1 Gm-D5w 50 ml Bag** 1 G/50 ML IVPB IV SCH (22:00)
[2022-01-09] MEDS ORDERED: Ditropan XL 5 MG PO SCH (22:00)
[2022-01-10 05:14] LABS: Absolute Neutrophil Ct (ANC) 7.36 x10^3/uL (1.4-6.9); Basophil (Absolute #) 0.04 x10^3/uL (0-0.4); Eosinophil % 1.7 % (0.00-5.0); Eosinophil (Absolute #) 0.19 x10^3/uL (0-0.5); Hematocrit 33.6 % (42-50); Hemoglobin 11.5 g/dL (12.5-18.0); Lymphocyte (Absolute #) 1.67 x10^3/uL (1.0-4.6); Lymphocytes % 15.3 % (24.0-44.0); Mean Cell Volume 88.2 fL (78-100); Mean Corpuscular Hemoglobin 30.2 pg (26-32); Mean Corpuscular Hgb Concent. 34.2 g/dL (32-36); Mean Platelet Volume 8.7 fL (7.5-11.0); Monocyte (Absolute #) 1.49 x10^3/uL (0.0-1.3); Monocytes % 13.6 % (0.0-12.0); Neutrophil % 67.4 % (36.0-66.0); Platelet Count 218 x10^3/uL (150-450); Red Blood Count 3.81 x10^6/uL (4.1-5.6); Red Cell Distribution Width 13.3 % (11.5-14.0); White Blood Count 10.9 x10^3/uL (4.0-10.5)
[2022-01-10] MEDS: Sodium Chloride 0.9% 1000 ML 1,000 ML IV SCH (05:40)
[2022-01-10 05:58] LABS: ANION GAP 8.6 MEQ/L (5-15); BLOOD UREA NITROGEN 14 mg/dL (9-20); CHLORIDE 103 mmol/L (98-107); Calcium 8.6 mg/dL (8.4-10.2); Carbon Dioxide 29 mmol/L (22-30); Creatinine 1 0.93 mg/dL (0.66-1.25); EST GLOMERULAR FILTRATION RATE > 60.0 ML/MIN; Glucose 108 mg/dL (74-106); Potassium 3.7 mmol/L (3.5-5.1); SODIUM 137 mmol/L (137-145)
[2022-01-10] MEDS: ENOXAPARIN SODIUM SQ SCH (09:10)
[2022-01-10] MEDS: PROTONIX 40 MG IV IV SCH (09:10)
[2022-01-10] MEDS: Xalatan OP SCH (09:10)
[2022-01-10 11:29] VITALS: BP 122/57; PULSE 60; O2SAT 91
--- NOTE | 2022-01-10 15:01 | PCM.DCORD ---
- Discharge Disposition: Home, Self-Care Condition: Stable Prescriptions: New Cefdinir 300 mg PO BID 7 Days #14 Azithromycin [Zithromax Tri-Pravin] 500 mg PO DAILY 3 Days #3 tablet Albuterol/Ipratropium 3ml Neb* [DUONEB 0.5-3 MG/3 ml Neb] 3 ml IH Q4HPRN PRN PRN Reason: Shortness Of Breath/Wheezing Continue Aspirin 81 gm Chew [Baby Aspirin 81 mg Chew] 81 mg PO QHS Oxybutynin Chloride [Oxybutynin Chloride ER] 10 mg PO QHS Meloxicam 7.5 tab PO QHS Multivitamin [Multivitamins] 1 tab PO QHS Chlorthalidone 12.5 mg PO QHS Latanoprost/Pf [Latanoprost 0.005% Eye Drop] 1 drop OP DAILY Pravastatin Sodium 20 mg PO QHS Timolol Maleate/Pf [Timolol Maleate 0.5% Eye Drop] 1 drop OP QHS Additional Instructions: Nebulizer treatments at home TID until seen by Dr Laura(states has machine and Rx) Follow up with: KAVIN LAURA MD [Primary Care Provider] - 01/19/22 1:30 pm
[2022-01-10 15:50] LABS: Absolute Neutrophil Ct (ANC) 7.19 x10^3/uL (1.4-6.9); Basophil (Absolute #) 0.06 x10^3/uL (0-0.4); Eosinophil % 2.2 % (0.00-5.0); Eosinophil (Absolute #) 0.24 x10^3/uL (0-0.5); Hemoglobin 12.2 g/dL (12.5-18.0); Lymphocytes % 16.4 % (24.0-44.0); Mean Cell Volume 90.2 fL (78-100); Mean Corpuscular Hemoglobin 29.8 pg (26-32); Mean Platelet Volume 8.4 fL (7.5-11.0); Monocyte (Absolute #) 1.46 x10^3/uL (0.0-1.3); Monocytes % 13.3 % (0.0-12.0); Neutrophil % 65.6 % (36.0-66.0); Platelet Count 231 x10^3/uL (150-450); Red Cell Distribution Width 12.9 % (11.5-14.0)
== END 2022-01-10 15:15 | disposition home or self-care (01) ==
LOC: ED 17:10 → MED SURG 20:10
PROVIDERS: ADMIT Family Medicine; ATTEND Family Medicine
DX: J18.9 Pneumonia, unspecified organism (principal); Z79.899 Other long term (current) drug therapy; Z20.828 Contact with and (suspected) exposure to other viral communicable diseases; Z72.0 Tobacco use
CPT/HCPCS: 0241U; 36000; 36415; 70450; 71250; 80048; 80053; 80307; 81015; 82607; 83605; 84443; 84484; 85025; 87040; 93005; 94760; 96374; 99285; G0378; G0480; J0456; J0696; J1650; A9270-GY

== ENCOUNTER 2024-08-25 08:24 | Day surgery (SDC) | payer MEDICARE ==
[2024-08-25] MEDS ORDERED: Lactated Ringers 1,000 ML IV ONE ×2 (08:40→12:16)
[2024-08-25] MEDS: Lactated Ringers 1,000 ML IV SCH (08:42)
[2024-08-25] MEDS: Ak-Dilate OPHTHALMIC*** 1.065 ML, Cyclogyl 1% OPHTH SOL 1.065 ML, GATIFLOXACIN 0.5% OPH... OP ONE (08:54)
[2024-08-25] MEDS: TETRACAINE 0.5% STERI-UNIT SOL OP ONE ×2 (08:54→09:22)
[2024-08-25] MEDS ORDERED: BETADINE 5% OPHTHALMIC 30 ML OP NR (10:30)
[2024-08-25] MEDS ORDERED: Epinephrine Preservative Free 1 MG/ML INTRAOP NR (10:30)
[2024-08-25] MEDS ORDERED: DEXMEDETOMIDINE 80 MCG/20ML-NS IV NR (10:30)
[2024-08-25] MEDS ORDERED: TRIAMCINOLONE 15 MG/ML INJ INTRAOP NR (10:30)
[2024-08-25] MEDS ORDERED: VIGAMOX/BSS 0.15% SYR IO NR (10:30)
[2024-08-25] MEDS ORDERED: Zofran 4 MG/2 ML VIAL IV PRN (10:45)
[2024-08-25] MEDS ORDERED: propofoL IV ONE (12:06)
[2024-08-25] MEDS: ACETAZOLAMIDE 250 MG TABLET PO ONE (13:07)
[2024-08-25 13:09] VITALS: RESP 16; TEMP 97.7
[2024-08-25 13:25] VITALS: BP 138/68; PULSE 56; O2SAT 99
== END 2024-08-25 13:28 | disposition home or self-care (01) ==
LOC: SDC 08:24
PROVIDERS: ATTEND Ophthalmology
DX: H25.811 Combined forms of age-related cataract, right eye (principal)
CPT/HCPCS: C1780; J0171; J2704; A9270-GY

== ENCOUNTER 2024-10-10 06:18 | Day surgery (SDC) | payer MEDICARE ==
[2024-10-10] MEDS ORDERED: Lactated Ringers 1,000 ML IV SCH (06:30)
[2024-10-10] MEDS ORDERED: Lactated Ringers 1,000 ML IV ONE (07:10)
[2024-10-10] MEDS: Lactated Ringers 1,000 ML IV SCH (07:37)
[2024-10-10] MEDS: Ak-Dilate OPHTHALMIC*** 0.71 ML, Cyclogyl 1% OPHTH SOL 0.71 ML, GATIFLOXACIN 0.5% OPHTH... OP SCH (07:38)
[2024-10-10] MEDS: TETRACAINE 0.5% STERI-UNIT SOL OP ONE (07:38)
[2024-10-10] MEDS ORDERED: TETRACAINE 0.5% STERI-UNIT SOL OP ONE (08:00)
[2024-10-10] MEDS ORDERED: BETADINE 5% OPHTHALMIC 30 ML OP NR (08:30)
[2024-10-10] MEDS ORDERED: Epinephrine Preservative Free 1 MG/ML INTRAOP NR (08:30)
[2024-10-10] MEDS ORDERED: DEXTENZA OP NR (08:30)
[2024-10-10] MEDS ORDERED: TRIAMCINOLONE 15 MG/ML INJ INTRAOP NR (08:30)
[2024-10-10] MEDS ORDERED: DEXMEDETOMIDINE 80 MCG/20ML-NS IV NR (08:30)
[2024-10-10] MEDS ORDERED: Zofran 4 MG/2 ML VIAL IV PRN (08:30)
[2024-10-10] MEDS ORDERED: VIGAMOX/BSS 0.15% SYR IO NR (08:30)
[2024-10-10] MEDS ORDERED: Versed 2 MG/2 ML Injection ONE (09:26)
[2024-10-10] MEDS ORDERED: SUBLIMAZE 100 MCG/2 ML ONE (09:26)
[2024-10-10] MEDS ORDERED: propofoL IV ONE (09:32)
[2024-10-10 10:02] VITALS: RESP 16; O2SAT 95
[2024-10-10] MEDS: ACETAZOLAMIDE 250 MG TABLET PO ONE (10:02)
[2024-10-10 10:07] VITALS: BP 99/56; PULSE 58; TEMP 97.7
== END 2024-10-10 10:15 | disposition home or self-care (01) ==
LOC: SDC 06:18
PROVIDERS: ATTEND Ophthalmology
DX: H25.812 Combined forms of age-related cataract, left eye (principal)
CPT/HCPCS: 68841; 93005; 99100; C1780; J0171; J1096; J2250; J2704; J3010; A9270-GY